=== PATIENT | male | born 1955 | race Caucasian/White ===

== ENCOUNTER 2016-09-19 18:45 | Emergency (ER) | payer OTHER ==
[~2016-09-19 18:45] MED LIST: GADOBUTROL 10 ML VIAL IVP ONE
--- NOTE | 2016-09-19 18:50 | MR ---
MRI of the Brain (Without and With Contrast) 1722 hours Clinical Indication: Severe headache. R51. Technique: T1-weighted images were acquired axially and sagittally from the foramen magnum to the ve rtex. Axial fast inversion recovery, fast T2-weighted, and diffusion-weighted axial images were obta ined without contrast. Postcontrast axial and coronal images with the uneventful intravenous administ ration of 10 mL Gadavist contrast. Findings: The ventricles, cisterns, and sulci are normal without atrophy, hydrocephalus, midline mason ft, herniation, or epidural/subdural hematomas. No intracranial hemorrhage or masses. Diffusion-weigh tristan images demonstrate no acute infarct. Cerebellar tonsils are in normal position. Partially empty s meli turcica. No flow noted in the left internal carotid artery at the skull base consistent with thr ombosis. The right internal carotid artery and basilar artery appear patent. Superior sagittal sinus appears patent. Postcontrast images demonstrate no enhancing lesions or abnormal leptomeningeal enhan cement. 2.2 cm mucous retention cyst in the left maxillary sinus. No evidence of leptomeningitis or e nhancing masses. Impression: 1. 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 2. Left maxillary sinus mucous retention cyst. 3. Partially empty sella turcica. 4. No acute infarct, acute hemorrhage, hydrocephalus, or mass effect. 5. No enhancing lesions. Findings and recommendations discussed with Dr. Abby Causey, at 1825 hours today. The patient has been taken to the emergency department for further evaluation. Final report concurs with initial preliminary interpretation. Findings and recommendations discussed with Emergency Department physician, Dr. Amber Velazquez, at 1845 hours today. Final report concurs with initial preliminary interpretation. Cosign: Dr. Parish Winslow.
[2016-09-19 18:55] VITALS: TEMP 97.3
--- NOTE | 2016-09-19 18:57 | EDPHY ---
H & P Stated Complaint: ABNORMAL MRI Time Seen by Provider: 09/19/16 18:56 HPI/ROS: CHIEF COMPLAINT: Left carotid occlusion, headache. HISTORY OF PRESENT ILLNESS: The patient is a 61-year-old male presenting from his primary care provider for a carotid occlusion seen on MRA/MRI. He visited PCP Dr. Causey earlier today for 3 weeks of headaches. These are worse in the morning and he has been treating them with an unknown amount of Tylenol every 4 hours to little effect. He denies associated nausea, vomiting, numbness, paresthesia, difficulty speaking, chest pain, or shortness of breath. He had an MRI taken that showed an occlusion of the left carotid at the base of his neck and he was immediately sent here. No fever, chills, palpitations, diarrhea, urinary complaints, lightheadedness. No stroke like symptoms. REVIEW OF SYSTEMS: Aside from elements discussed in the HPI, a comprehensive 10-point review of systems was reviewed and is negative. PAST MEDICAL HISTORY: Diastolic hypertension with no heart failure, GERD, gastric bypass. SOCIAL HISTORY: Nonsmoker, occasional alcohol use. VITAL SIGNS: Reviewed by me GENERAL: Obese. Well-developed, well-nourished, resting comfortably in no respiratory distress. HEENT: Atraumatic. Eyes: No icterus, no injection. PERRL, EOMI. Mouth: moist mucous membranes. No erythema or lesions. Neck: supple with no adenopathy. Unable to auscultate carotids bilaterally. LUNGS: Clear to auscultation bilaterally, no wheezes, rhonchi or rales. CARDIAC: Distant heart sounds. Regular rate and rhythm, no rubs, murmurs or gallops. ABDOMEN: Soft, nontender, nondistended, bowel sounds normal. BACK: No CVA tenderness. EXTREMITIES: No trauma. No edema. Range of motion is normal throughout. NEURO: Alert and oriented, CN 2-12 intact, fluent speech, motor 5/5 throughout , normal sensation, normal gait. SKIN: Warm and dry, no rash. PSYCHIATRIC: Normal mentation, no agitation. Portions of this note were transcribed by a medical technician. I personally performed a history, physical exam, medical decision making, and confirmed accuracy of information the transcribed note. Source: Patient Exam Limitations: No limitations - Personal History Current Tetanus/Diphtheria Vaccine: Yes - Medical/Surgical History Hx Asthma: No Hx Chronic Respiratory Disease: No Hx Diabetes: No Hx Cardiac Disease: No Hx Renal Disease: No Hx Cirrhosis: No Hx Alcoholism: No Hx HIV/AIDS: No Hx Splenectomy or Spleen Trauma: No Other PMH: DENIES - Social History Smoking Status: Never smoked Constitutional: Initial Vital Signs Temperature (C) 36.3 C 09/19/16 18:51 Heart Rate 59 L 09/19/16 18:51 Respiratory Rate 18 09/19/16 18:51 Blood Pressure 123/79 H 09/19/16 18:51 O2 Sat (%) 97 09/19/16 18:51 O2 Delivery Mode Room Air O2 (L/minute) 3 Allergies/Adverse Reactions: nitroglycerin [Nitroglycerin] Allergy (Severe, Verified 09/19/16 18:49) [place] iodine [Iodine] Allergy (Unknown, Verified 09/19/16 18:49) Sulfa (Sulfonamide Antibiotics) Allergy (Unknown, Verified 09/19/16 18:49) Home Medications: Medication Instructions Recorded Furosemide [Lasix 20 MG (RX)] 20 mg PO 11/22/11 Levocetirizine Dihydrochloride 5 mg PO 11/22/11 Flomax 09/19/16 Metoprolol Succinate 09/19/16 Omeprazole 09/19/16 Medical Decision Making - Diagnostics Imaging: Study: MRA/MRI of the: Brain Indication: Headache Results: 1. 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 2. Left maxillary sinus mucous retention cyst. 3. Partially empty sella turcica. 4. No acute infarct, acute hemorrhage, hydrocephalus, or mass effect. 5. No enhancing lesions. 6. No definite cerebral aneurysm. The study was read by the radiologist, Dr. Wood. I viewed the images myself on the PACS system. Study: CTA of the brain/neck. Results: 1. Occluded left internal carotid artery, with probable subacute dissection. 2. Mild atherosclerotic calcification right carotid bulb, with mild, less than 30% diameter, stenosis. 3. Patent vertebrobasilar system. The study was read by the radiologist, Dr. Wood. I viewed the images myself on the PACS system. ED Course/Re-evaluation: I reviewed the patient's MRI studies from earlier today (see imaging studies for more information). An IV was established and labs ordered. 1L IV saline, 50mg IV Benadryl, 125mg IV Solu-Medrol administered. (questionable allergy to iodine). Head/neck CTs with contrast ordered. 2131: Consulted with Dr. Merchant, neurologist at [facility]. No indication for acute TPA or IR intervention. No ICU beds available at [facility]. Feel patient needs higher level of care at [facility] for further evaluation of this presumed subacute dissection, initiation of treatment and further workup. Plus will be able to access urgent IR treatment if needed as well as onsite neurology evaluation. Patient in agreement. Transfered to [facility]. Differential Diagnosis: After history was obtained, and the physical exam performed, a differential for headache was considered including, but not limited to, subarachnoid hemorrhage, migraine headache, tension headache, CVA, thrombo-occlusive disease, dissection , and infectious causes such as meningitis, sinusitis, encephalitis. Consult/Admit Bed Type: Dr Merchant, [facility] - Data Points Laboratory Results: Laboratory Results 09/19/16 19:40 09/19/16 19:40 Medications Given: Discontinued Medications Diphenhydramine HCl (Benadryl Injection) 50 mg IVP EDNOW ONE Stop: 09/19/16 19:35 Last Admin: 09/19/16 19:46 Dose: 50 mg Hydromorphone HCl (Dilaudid) 0.5 mg IVP EDNOW ONE Stop: 09/19/16 21:19 Last Admin: 09/19/16 21:20 Dose: 0.5 mg Sodium Chloride (Ns) 1,000 mls @ 500 mls/hr IV EDNOW ONE Stop: 09/19/16 21:32 Last Admin: 09/19/16 19:45 Dose: 1,000 mls Methylprednisolone Sodium Succinate (Solu-Medrol) 125 mg IVP EDNOW ONE Stop: 09/19/16 19:35 Last Admin: 09/19/16 19:46 Dose: 125 mg Departure - Departure Disposition: Acute Care Hospital Not [facility] Clinical Impression: Carotid occlusion, left, Headache, Carotid artery dissection Condition: Fair Referrals: Abby Causey MD [Primary Care Provider] - As per Instructions Report Scribed for: Amber Velazquez Report Scribed by: Michael Casper Date of Report: 09/19/16 Time of Report: 18:56
--- NOTE | 2016-09-19 18:59 | MR ---
MR Arteriogram of the [place] Clinical Indications: Severe headache. R51, R29.818. Neurological changes strongly suggesting intr acerebral aneurysm. Technique: A hfcb-wj-cdeoah gradient echo technique was used for thin axial images at the skull base for evaluation of major vessels of the [place]. Three-dimensional technique was used with a 30-degree gradient echo flip angle and a traveling saturation band. Images were manipulated by the radiologist at the computer workstation. Findings: Major vessels of the [place] are adequately displayed, demonstrating no flow in t he left internal carotid artery at the skull base. Normal flow in the right internal carotid artery, vertebrobasilar system, and [place] vessels. No definite aneurysm. No vascular malformati ons. Impressions 1. Thrombosis of the left internal carotid artery at the skull base. 2. No definite cerebral aneurysm. Findings and recommendations discussed with Dr. Abby Causey, Emergency Department physician, and Lisa Velazquez. The patient has been taken to the Emergency Department. Final report concurs with initial preliminary interpretation.
[2016-09-19] MEDS ORDERED: NS 1,000 ML IV ONE (19:33)
[2016-09-19] MEDS ORDERED: methylPREDNISolone SOD SUCC 125 MG/2 ML VIAL IVP ONE (19:34)
[2016-09-19 19:45] LABS: % IMMATURE GRANULYOCYTES 0.2 % (0.0-1.1); ABSOLUTE IMMATURE GRANULOCYTES 0.02 10^3/uL (0.00-0.10); ADD DIFF? NO; ADD MORPH? NO; ADD SCAN? NO; ATYPICAL LYMPHOCYTE FLAG 0 (0-99); FRAGMENT RBC FLAG 0 (0-99); HEMATOCRIT 46.1 % (40.0-51.0); HEMOGLOBIN 15.8 g/dL (13.7-17.5); LEFT SHIFT FLG 0 (0-99); LIPEMIA HEMOLYSIS FLAG 90 (0-99); MEAN CELL HEMOGLOBIN 30.3 pg (27.9-34.1); MEAN CELL HEMOGLOBIN CONCENTR. 34.3 g/dL (32.4-36.7); MEAN CELL VOLUME 88.5 fL (81.5-99.8); MEAN PLATELET VOLUME 10.7 fL (8.7-11.7); PLATELET CLUMPS FLAG 0 (0-99); PLATELET COUNT 274 10^3/uL (150-400); RED BLOOD CELL COUNT 5.21 10^6/uL (4.40-6.38); RED CELL DISTRIBUTION WIDTH 12.8 % (11.5-15.2)
[2016-09-19 20:00] LABS: ANION GAP 12 mEq/L (8-16); CALCIUM 9.5 mg/dL (8.5-10.4); CARBON DIOXIDE 25 mEq/l (22-31); CHLORIDE 104 mEq/L (97-110); CREATININE 1.1 mg/dL (0.7-1.3); GLOMERULAR FILTRATION RATE > 60; GLUCOSE 97 mg/dL (70-100); POTASSIUM 4.2 mEq/L (3.5-5.2); SODIUM 141 mEq/L (134-144)
[2016-09-19] MEDS ORDERED: IOPAMIDOL (ISOVUE 370) 75 ML BTL IV ONE (20:05)
[2016-09-19 20:26] LABS: ALANINE AMINOTRANSFERASE 33 IU/L (21-72); ALBUMIN 4.3 g/dL (3.5-5.0); ALKALINE PHOSPHATASE 117 IU/L (38-126); ASPARTATE AMINOTRANSFERASE 30 IU/L (17-59); BILIRUBIN-CONJUGATED 0.3 mg/dL (0.0-0.5); BILIRUBIN-UNCONJUGATED 0.7 mg/dL (0.0-1.1); TOTAL PROTEIN 7.7 g/dL (6.3-8.2)
[2016-09-19] MEDS ORDERED: HYDROmorphONE/DILAUDID 1 MG/ML SYR IVP ONE (21:18)
--- NOTE | 2016-09-19 22:22 | CT ---
CT Angiogram Neck, With Contrast Enhancement and Multiplanar Reconstructions 2031 hours History: Occluded left internal carotid artery, left-sided neck pain for three weeks. Technique: 1.25-mm axial multidetector helical CT imaging was performed through the brain and neck w hile 90 mL Isovue-370 were injected intravenously, without complication. The images were then transf erred to an independent workstation where multiplanar and three-dimensional reconstructions were perf ormed by the interpreting physician and reviewed at multiple windows. Dose reduction techniques were utilized. CTA Findings: Patent bilateral common carotid arteries. Patent bilateral vertebral arteries and mary lou tebrobasilar system. Mild atherosclerotic disease right carotid bulb, with less than 30% diameter st enosis of the proximal right internal carotid artery. Complete occlusion of the left internal caroti d artery approximately 1 cm distal to the bifurcation, with only minimal calcified plaque, likely rep resenting subacute dissection. Impressions 1. Occluded left internal carotid artery, with probable subacute dissection. 2. Mild atherosclerotic calcification right carotid bulb, with mild, less than 30% diameter, stenosi s. 3. Patent vertebrobasilar system. Measurement of carotid stenosis is based on the residual internal carotid diameter with [place] Symptomatic Carotid Endarterectomy Trial (NASCET) based stenosis levels. CT Angiogram of the Brain Clinical Indications: Occluded left internal carotid artery, left-sided neck pain. Technique: CT angiogram of the brain and neck was performed, with the uneventful intravenous adminis tration of 90 mL Isovue-370 contrast. Multiplanar reconstructions including 3D reconstructions perfo rmed and evaluated on [employer] workstation in order to better evaluate the [place] vessels. Im ages were manipulated by the radiologist at the computer workstation. Dose reduction techniques were utilized. Findings: Major vessels of the [place] are adequately displayed, demonstrating complete occ lusion of the left internal carotid artery, with reflux from the [place]. The right interna l carotid artery is patent. Bilateral anterior, middle, and posterior cerebral arteries appear paten t. Vertebrobasilar junction appears patent. Superior sagittal sinus, transverse sinuses, and major veins demonstrate no evidence of intraluminal thrombi. Impression: Occluded left internal carotid artery. Findings and recommendations discussed with Emergency Department physician, Dr. Amber Velazquez, at 0 hours. A test result has been communicated to a licensed care provider and documented in [employer], 9:49:39 PM , 09/19/2016, [employer] Message ID [id number].
--- NOTE | 2016-09-19 22:22 | CT ---
CT Angiogram Neck, With Contrast Enhancement and Multiplanar Reconstructions 2031 hours History: Occluded left internal carotid artery, left-sided neck pain for three weeks. Technique: 1.25-mm axial multidetector helical CT imaging was performed through the brain and neck w hile 90 mL Isovue-370 were injected intravenously, without complication. The images were then transf erred to an independent workstation where multiplanar and three-dimensional reconstructions were perf ormed by the interpreting physician and reviewed at multiple windows. Dose reduction techniques were utilized. CTA Findings: Patent bilateral common carotid arteries. Patent bilateral vertebral arteries and mary lou tebrobasilar system. Mild atherosclerotic disease right carotid bulb, with less than 30% diameter st enosis of the proximal right internal carotid artery. Complete occlusion of the left internal caroti d artery approximately 1 cm distal to the bifurcation, with only minimal calcified plaque, likely rep resenting subacute dissection. Impressions 1. Occluded left internal carotid artery, with probable subacute dissection. 2. Mild atherosclerotic calcification right carotid bulb, with mild, less than 30% diameter, stenosi s. 3. Patent vertebrobasilar system. Measurement of carotid stenosis is based on the residual internal carotid diameter with [place] Symptomatic Carotid Endarterectomy Trial (NASCET) based stenosis levels. CT Angiogram of the Brain Clinical Indications: Occluded left internal carotid artery, left-sided neck pain. Technique: CT angiogram of the brain and neck was performed, with the uneventful intravenous adminis tration of 90 mL Isovue-370 contrast. Multiplanar reconstructions including 3D reconstructions perfo rmed and evaluated on [employer] workstation in order to better evaluate the [place] vessels. Im ages were manipulated by the radiologist at the computer workstation. Dose reduction techniques were utilized. Findings: Major vessels of the [place] are adequately displayed, demonstrating complete occ lusion of the left internal carotid artery, with reflux from the [place]. The right interna l carotid artery is patent. Bilateral anterior, middle, and posterior cerebral arteries appear paten t. Vertebrobasilar junction appears patent. Superior sagittal sinus, transverse sinuses, and major veins demonstrate no evidence of intraluminal thrombi. Impression: Occluded left internal carotid artery. Findings and recommendations discussed with Emergency Department physician, Dr. Amber Velazquez, at 0 hours. A test result has been communicated to a licensed care provider and documented in [employer], 9:49:39 PM , 09/19/2016, [employer] Message ID [id number].
[2016-09-19 22:27] VITALS: BP 131/80; PULSE 58; RESP 20; O2SAT 94
== END 2016-09-19 22:41 | disposition short-term general hospital (02) ==
DX: R51 Headache (principal); I65.22 Occlusion and stenosis of left carotid artery; I77.71 Dissection of carotid artery; I10 Essential (primary) hypertension
CPT/HCPCS: 96374; A9585; G0480; J1170

== ENCOUNTER → 2018-03-24 | Outpatient (CLI) | payer OTHER | LOC: FIMAGING 10:34 | PROVIDERS: ATTEND Orthopaedic Surgery | DX: Z01.818 Encounter for other preprocedural examination (principal); M16.11 Unilateral primary osteoarthritis, right hip ==

== ENCOUNTER 2018-05-04 09:35 | Inpatient (IN) | payer OTHER ==
--- NOTE | 2018-05-04 06:46 | PDHPUP ---
History & Physical Update H&P update statement: This history and physical update is based on an assessment of the patient which was completed after admission or registration (within 24 hours), but prior to the surgery/procedure. H&P update: no change in patient's condition since H&P completed
--- NOTE | 2018-05-04 06:46 | PDIAF ---
- Diagnosis Diagnosis: right hip djd Code Status: Full Code - Medication Management Discharge Medications: Medications to Continue on Transfer Metoprolol Succinate Xr [Toprol Xl 25 mg (*)] 12.5 mg PO DAILY 09/19/16 [Last Taken Unknown] Tamsulosin HCl [Flomax 0.4 MG (*)] 0.4 mg PO DAILY 09/19/16 [Last Taken Unknown] Acetaminophen [Tylenol 325mg (*)] 325 mg PO DAILY PRN 04/16/18 [Last Taken Unknown] Atorvastatin Calcium [Lipitor 40 mg (*)] 40 mg PO HS 04/16/18 [Last Taken Unknown] Azelastine/Fluticasone [Dymista Nasal [place]] 1 spray EACHNARE BID 04/16/18 [ Last Taken Unknown] Cholecalciferol Vit D3 [Vitamin D3 (*)] 5,000 units PO DAILY 04/16/18 [Last Taken Unknown] Clopidogrel Bisulfate [Plavix (*)] 75 mg PO HS 04/16/18 [Last Taken Unknown] Furosemide [Lasix 40 MG (*)] 40 mg PO DAILY 04/16/18 [Last Taken Unknown] Herbals/Supplements -Info Only 1 ea PO DAILY 04/16/18 [Last Taken Unknown] Levocetirizine Dihydrochloride [Xyzal] 5 mg PO DAILY 04/16/18 [Last Taken Unknown] Montelukast Sodium [Singulair 10 mg (*)] 10 mg PO HS 04/16/18 [Last Taken Unknown] Pantoprazole Sodium [Protonix] 20 mg PO HS 04/16/18 [Last Taken Unknown] Discharge Medications: Refer to the Discharge Home Medication list for PRN reason. - Orders Services needed: Physical Therapy Diet Recommendation: no restrictions on diet Diet Texture: Regular Texture Diet Additional Instructions: TOTAL JOINT ARTHROPLASTY DISCHARGE INSTRUCTIONS 1. Your surgeon follows the [facility] protocol for reducing your risk of DVT (blood clots) following surgery. Medication will be ordered to prevent blood clots. A sudden increase in calf pain and/or swelling could indicate a blood clot in your leg. If this occurs, please call your surgeon or his/her assistant professor of communication. An ultrasound of the leg may be necessary to diagnose a blood clot. If you have conditions that make you a higher risk for blood clots, your surgeon may use more aggressive ways to prevent them. Notify your surgeon if you think you are a high risk for blood clots. 2. Wear your white surgical stockings (SIMONA hose) for 2 weeks. This decreases your swelling and may help prevent blood clots. It is ok to remove SIMONA hose at night time to give your legs a break. 3. Swelling and bruising in the surgical leg is common. If you feel that it is excessive, please notify your surgeon. 4. Elevate your surgical leg with the ankle above the hip several times every day. Please keep the leg straight when you elevate by putting pillows under your foot. Do not put pillows under your knee. This will make being able to fully straighten more difficult. This is uncomfortable, but try to do it as much as possible. 5. For total knee replacements use compressive wrap on your knee for 3-5 days after surgery, then you can discontinue it. 6. Use a walker or crutches for 1-2 weeks. Progress your weight-bearing as tolerated. You may start to use a cane when you feel stable and safe. 7. You will receive physical therapy instructions in the hospital. Continue those exercises at home. There are additional exercises in the total joint booklet you were given before surgery. Outpatient physical therapy will begin 7- 10 days after surgery. Please schedule this in advance. 8. Use ice on your knee at least 3-5 times every day for 30 minutes. This helps reduce pain and swelling. Also use it at night before falling asleep. 9. Leave your surgical dressing in place for 2 weeks. Your dressing is water resistant, but not waterproof. Cover it with Saran Wrap or Lvxiv-v-Baee before showering. You may shower as soon as you feel safe entering a shower. If you notice bleeding from your incision 2 or 3 days after surgery, please notify your surgeon. 10. Due to narcotics, decreased activity and altered diet, most patients experience constipation after surgery. Use agwk-bve-slcplqg stool softeners while you are on narcotics. 11. You may drive a car when you are comfortable bearing weight, have good muscular control of your leg and are off narcotics. This usually occurs 2-4 weeks after surgery, depending on which leg was operated on. 12. If there are questions not addressed here, please refer the [facility] book given for more information. If you still have questions, please contact your surgeon s office. 13. If you have a life-threatening emergency, please call 911 and go to the emergency room immediately. For non-life threatening emergencies, please call your physicians office for advice before going to the emergency room. - Follow Up Care Current Providers and Referrals: Dagoberto Leos MD [Medical Doctor] - Abby Causey MD [Primary Care Provider] -
[~2018-05-04 09:35] MED LIST changes: -GADOBUTROL 10 ML VIAL IVP ONE; +ROPIVACAINE 0.2% 80 MG, EPINEPHrine 0.2 MG, morphINE 10 MG in SYRINGE 0 ML IU ONE; +TRANEXAMIC ACID 2,000 MG in NS 100 ML IV ONE; +ceFAZolin 1 GM/5 ML SYR ONE
[2018-05-04] MEDS ORDERED: FAMOTIDINE 20 MG TAB PO ONE (09:54)
[2018-05-04] MEDS ORDERED: LR 1,000 ML IV ONE (09:54)
[2018-05-04] MEDS ORDERED: ACETAMINOPHEN 325 MG TAB PO ONE (09:54)
[2018-05-04] MEDS ORDERED: LIDOCAINE 1% 2 ML INJ ID PRN (09:54)
[2018-05-04] MEDS ORDERED: ceFAZolin 2 GM/DEXTROSE 100 ML IV ONE (09:54)
--- NOTE | 2018-05-04 11:06 | PDANEPAE ---
ANE History of Present Illness R [place] ANE Past Medical History - Cardiovascular History Hx Hypertension: No Hx Arrhythmias: No Hx Chest Pain: No Hx Coronary Artery / Peripheral Vascular Disease: Yes Hx CHF / Valvular Disease: No Hx Palpitations: No Cardiovascular History Comment: pericardial cyst 2007. bp runs low, HPL. disected carotid artery in neck. [place] [facility] will obtain records. bilateral lower ext edema - Pulmonary History Hx COPD: No Hx Asthma/Reactive Airway Disease: No Hx Recent Upper Respiratory Infection: No Hx Oxygen in Use at Home: No Hx Sleep Apnea: Yes Sleep Apnea Screening Result - Last Documented: Positive Pulmonary History Comment: hx of ghazala- doesn't use any devices, unable to tolerate CPAP, states he only sleeps on his side. O2 Sat on RA today: 90%. seasonal allergies - Neurologic History Hx Cerebrovascular Accident: Yes Hx Seizures: No Hx Dementia: No Neurologic History Comment: stroke 09/2016, no residual deficits - Endocrine History Hx Diabetes: No Hypothyroid: No Hyperthyroid: No Obesity: severe - Renal History Hx Renal Disorders: Yes Renal History Comment: BPH, on meds - Liver History Hx Hepatic Disorders: No - Neurological & Psychiatric Hx Hx Neurological and Psychiatric Disorders: Yes Neurological / Psychiatric History Comment: skin ca - Cancer History Hx Cancer: No - Congenital Disorder History Hx Congenital Disorders: No - GI History GERD: mild Hx Gastrointestinal Disorders: Yes Gastrointestinal History Comment: hx of gastric bypass 2009 - Other Health History Other Health History: wears reading glasses - Chronic Pain History Chronic Pain: Yes (right hip) - Surgical History Prior Surgeries: gastric bypass 2009. meniscus repair 30 yrs ago. tonsillectomy 55yrs ago ANE Review of Systems Review of Systems: - Exercise capacity METS (RN): 4 METS ANE Patient History - Allergies Allergies/Adverse Reactions: iodine [Iodine] Allergy (Verified 04/21/18 11:47) rash and fever nitroglycerin [Nitroglycerin] Allergy (Verified 04/21/18 11:47) lowers BP NSAIDS (Non-Steroidal Anti-Inflamma Allergy (Verified 04/21/18 11:47) hx of gastric bypass surgery unable to take Sulfa (Sulfonamide Antibiotics) Allergy (Verified 04/21/18 11:47) Rash - Home Medications Home Medications: Metoprolol Succinate Xr [Toprol Xl 25 mg (*)] 12.5 mg PO DAILY 09/19/16 [Last Taken 05/02/18] Tamsulosin HCl [Flomax 0.4 MG (*)] 0.4 mg PO DAILY 09/19/16 [Last Taken 07:00] Acetaminophen [Tylenol 325mg (*)] 325 mg PO DAILY PRN 04/16/18 [Last Taken 05/03] Atorvastatin Calcium [Lipitor 40 mg (*)] 40 mg PO HS 04/16/18 [Last Taken ] Azelastine/Fluticasone [Dymista Nasal [place]] 1 spray EACHNARE BID 04/16/18 [ Last Taken 05/02/18] Cholecalciferol Vit D3 [Vitamin D3 (*)] 5,000 units PO DAILY 04/16/18 [Last Taken 04/27/18] Clopidogrel Bisulfate [Plavix (*)] 75 mg PO HS 04/16/18 [Last Taken 04/29/18] Furosemide [Lasix 40 MG (*)] 40 mg PO DAILY 04/16/18 [Last Taken 05/02/18] Herbals/Supplements -Info Only 1 ea PO DAILY 04/16/18 [Last Taken 04/27/18] Levocetirizine Dihydrochloride [Xyzal] 5 mg PO DAILY 04/16/18 [Last Taken ] Montelukast Sodium [Singulair 10 mg (*)] 10 mg PO HS 04/16/18 [Last Taken ] Pantoprazole Sodium [Protonix] 20 mg PO HS 04/16/18 [Last Taken 05/02/18] - NPO status NPO Since - Liquids (Date): 05/03/18 NPO Since - Liquids (Time): 03:00 NPO Since - Solids (Date): 05/03/18 NPO Since - Solids (Time): 22:00 - Anes Hx Anes Hx: no prior problems - Smoking Hx Smoking Status: Never smoked Marijuana use: No - Alcohol Use Alcohol Use: None - Family Anes Hx Family Anes Hx: none Family Hx Anesthesia Complications: none ANE Labs/Vital Signs - Vital Signs Blood Pressure: 119/78 Heart Rate: 73 Respiratory Rate: 12 O2 Sat (%): 90 Height: 176.53 cm Weight: 127.006 kg ANE Physical Exam - Airway Neck exam: FROM Mallampati Score: Class 2 - Pulmonary Pulmonary: clear to auscultation - Cardiovascular Cardiovascular: regular rate and rhythym - ASA Status ASA Status: III ANE Anesthesia Plan Anesthesia Plan: general endotracheal anesthesia, spinal (Discussed possible difficulty with SAB, risks/benefits)
[2018-05-04] MEDS ORDERED: MIDAZOLAM 2 MG/2 ML VIAL IVP ONE (11:13)
[2018-05-04] MEDS ORDERED: DEXAMETHASONE 4 MG/ML VIAL ONE (11:24)
[2018-05-04] MEDS ORDERED: RANITIDINE 50 MG/2 ML VIAL ONE (11:24)
[2018-05-04] MEDS ORDERED: PROPOFOL 200 MG/20 ML VIAL ONE (11:24)
[2018-05-04] MEDS ORDERED: ROCURONIUM 50 MG/5 ML VIAL ONE ×2 (11:24)
[2018-05-04] MEDS ORDERED: BUPIVACAINE/DEXTROSE 7.5MG/ML 2 ML SPINAL AMP SP ONE (11:28)
[2018-05-04] MEDS ORDERED: PHENYLEPHRINE 10 MG/ML SDV ONE (12:00)
[2018-05-04] MEDS ORDERED: ePHEDrine SULFATE 25 MG/5 ML SYR ONE (12:12)
[2018-05-04] MEDS ORDERED: ONDANSETRON 4 MG/2 ML VIAL ONE ×2 (13:10→14:45)
[2018-05-04] MEDS ORDERED: GLYCOPYRROLATE 0.2 MG/1 ML VIAL ONE ×2 (13:40)
[2018-05-04] MEDS ORDERED: NEOSTIGMINE METHYLSULFATE 5 MG/5 ML SYR ONE (13:40)
[2018-05-04] MEDS ORDERED: NALOXONE HCL 0.4 MG/ML INJ IVP PRN (13:51)
[2018-05-04] MEDS ORDERED: HYDROmorphONE/DILAUDID 1 MG/ML INJ IVP PRN (13:51)
[2018-05-04] MEDS ORDERED: TEMAZEPAM 15 MG CAP PO PRN (13:52)
[2018-05-04] MEDS ORDERED: MAGNESIUM HYDROXIDE 30 ML UDCUP PO PRN (13:52)
[2018-05-04] MEDS ORDERED: PROMETHAZINE HCL 25 MG SUPPR PR PRN (13:52)
[2018-05-04] MEDS ORDERED: LACTULOSE 20 GM/30 ML UDCUP PO PRN (13:52)
[2018-05-04] MEDS ORDERED: BISACODYL 10 MG SUPP PR PRN (13:52)
[2018-05-04] MEDS ORDERED: POLYETHYLENE GLYCOL 3350 17 GM PKT PO PRN (13:52)
[2018-05-04] MEDS ORDERED: ONDANSETRON DISINTEGRATING 4 MG TAB PO PRN (13:52)
[2018-05-04] MEDS ORDERED: PROMETHAZINE HCL 25 MG/ML INJ IVP PRN (13:52)
[2018-05-04] MEDS ORDERED: DIPHENOXYLATE/ATROPINE LOMOTIL 1 TAB PO PRN (13:52)
[2018-05-04] MEDS ORDERED: METOCLOPRAMIDE 10 MG/2 ML VIAL IVP PRN (13:52)
[2018-05-04] MEDS ORDERED: diphenhydrAMINE 25 MG CAP PO PRN (13:52)
[2018-05-04] MEDS ORDERED: ONDANSETRON 4 MG/2 ML VIAL IVP PRN (13:52)
--- NOTE | 2018-05-04 13:52 | POSTOPPROG ---
Post Op Note Date of Operation: 05/04/18 Surgeon: Dagoberto Leos Judicial Law Clerk: lilly Anesthesiologist: sharlene Anesthesia: GET(General Endotracheal), Spinal Pre-op Diagnosis: right hip djd Post-op Diagnosis: same Indication: same Procedure: right vera Inf/Abcess present in the surg proc area at time of surgery?: No Depth: Deep Incisional (Fascial) EBL: 100-500 Drains: Hemovac
[2018-05-04] MEDS ORDERED: LR 1,000 ML IV SCH (14:00)
[2018-05-04] MEDS ORDERED: fentaNYL 100 MCG/2 ML INJ ONE (14:22)
[2018-05-04] MEDS: fentaNYL 100 MCG/2 ML INJ IVP PRN ×3 (14:26→15:00)
--- NOTE | 2018-05-04 15:07 | PDMN ---
Medical Necessity Medical necessity: [facility] S560 hip arthroplasty INPT only R [place]
--- NOTE | 2018-05-04 15:51 | POSTANESTH ---
Post Anesthetic Evaluation Cardiovascular Status: Similar to Pre-Op Cond Respiratory Status: Similar to Pre-op Cond. Level of Consciousness/Mental Status: Can Participate in Eval Pain Control: Adequate, Prn Tx Ordered Nausea/Vomiting Control: Adequate, Prn Tx Ordered Complications Possibly Related to Anesthesia: None Noted
[2018-05-04] MEDS: oxyCODONE IR 5 MG TAB PO PRN ×2 (16:50→20:40)
[2018-05-04] MEDS: ACETAMINOPHEN 325 MG TAB PO SCH (17:56)
[2018-05-04] MEDS: CYCLOBENZAPRINE 10 MG TAB PO PRN (17:59)
--- NOTE | 2018-05-04 19:07 | GCON ---
[f rep st] CONSULTATION INTERNAL MEDICINE CONSULTATION DATE OF CONSULTATION: 05/04/2018 REFERRING PHYSICIAN: Dagoberto Leos MD REASON FOR CONSULTATION: Medical opinion regarding perioperative management of anticoagulation. HISTORY: The patient is a 66-year-old male, who has undergone an elective right total hip arthroplas ty with Dr. Leos. He has a history of carotid artery dissection and was on anticoagulation with Cou madin for a prolonged period of time and subsequently has been changed onto Plavix about 1 year ago. In his preoperative evaluation care conference between Dr. Leos, Dr. Edward, and his gastric bypass [facility] physician resulted in a plan of holding Plavix 5 days prior to surgery. He started on Lovenox at that time, and has been using it as a bridge at [address] Leos would like him to hold Plavix for [address] Edward, the radiologist who has been managing his carotid artery dissection, recommended resuming Lovenox immediately post surgery. Dr. Leos's preference is wait u ntil tomorrow morning. The patient and his were anxious to get the 1st dose of Lovenox now. They were otherwise without any complaints. He was having a little bit of issues with postoperative pain control, but otherwise was doing well. PAST MEDICAL HISTORY: 1. Carotid artery dissection. 2. Fibromuscular dysplasia. 3. Hyperlipidemia. 4. BPH. 5. Morbid obesity. BMI 40. 6. Gastric bypass surgery. MEDICATIONS: Please see computerized record for full detailed list. ALLERGIES: Nitro, sulfa, and iodine. SOCIAL HISTORY: No smoking. No alcohol. He lives with his . REVIEW OF SYSTEMS: Complete review of systems 10 review of systems negative regarding constitutional , HEENT, GI, pulmonary, cardiovascular, , hematologic, musculoskeletal, endocrine, psych, except fo r positives and negatives as in HPI. FAMILY HISTORY: Reviewed and noncontributory to presenting complaint. PHYSICAL EXAMINATION: GENERAL: Well-developed, well-nourished male in no acute distress. VITAL SIGNS : Temperature 36.3, pulse 64, blood pressure 102/72, saturating 95% on 4 L. EYE: Normal conjunctivae. Pupils react to light. ENT: Normal ears and nose. Hearing intact. Normal teeth. Oropharynx moist. NE CK: Trachea midline. No thyromegaly. CHEST: Normal respiratory effort. LUNGS: Clear to auscultation b ilaterally. CARDIOVASCULAR: Regular rhythm. No murmur. No lower extremity edema. ABDOMEN: Soft, nonte nder. No hepatosplenomegaly. SKIN: Warm, dry, intact. No rash. MUSCULOSKELETAL: No cyanosis or clubbi ng. Strength 5/5 upper and lower extremities. NEURO: Cranial nerves intact. Normal sensation to light touch. PSYCH: Alert and oriented x3. Normal affect. Normal judgment and insight. Normal memory. LABS: Pending. CBC and Chem 7 ordered for tomorrow morning. This case was discussed with Dr. Leos regarding preference for waiting till tomorrow morning for subcu Lovenox. Old records reviewed. I rev iewed records from Dr. Edward who appears to be a radiologist with [facility] at [facility] regarding anticoagulation plan. Pelvic x-rays are consistent with normal postoperativ e right hip replacement. ASSESSMENT/PLAN: 1. Status post total hip arthroplasty per Dr. Leos. Physical therapy, occupational therapy startin g tomorrow morning. 2. Carotid artery dissection. He has been off Plavix 1 week for surgery and now on a Lovenox bridge at 30 mg subcutaneous b.i.d. which will be resumed. The patient and Dr. Edward would like the subcutaneou s Lovenox initiated immediately post surgery. Dr. Leos would like it to start tomorrow morning 1st dose. I think I will split the difference and order it for late tonight dosing to get him on a usual b.i.d. schedule. I think the risk of stroke and problems with the cerebral perfusion to me are more c oncerning than the risk of bleeding postoperatively with the hip as per record review, it appears he continues to have very low blood flow through this area of dissection. Lovenox will be continued at t his dosage until Plavix can be restarted in 1 week. 3. Morbid obesity. Body mass index is 40. This should be watched closely with narcotic pain control in the postoperative state as he does run the risk of respiratory issues. 4. Status post gastric bypass surgery. The patient and his refused any aspirin because of this history. Thank you very much for this consultation. Internal Medicine will continue to follow throughout this hospitalization. /[id number]/MODL
[2018-05-04] MEDS ORDERED: TRANEXAMIC ACID 650 MG TAB PO SCH (20:00)
[2018-05-04] MEDS: PANTOPRAZOLE SODIUM 40 MG TAB PO SCH (20:28)
[2018-05-04] MEDS: ATORVASTATIN CALCIUM 40 MG TAB PO SCH (20:28)
[2018-05-04] MEDS: ceFAZolin 2 GM/DEXTROSE 100 ML IV SCH (20:30)
[2018-05-04] MEDS: MONTELUKAST SODIUM 10 MG TAB PO SCH (20:31)
[2018-05-04] MEDS: FAMOTIDINE 20 MG TAB PO SCH (20:31)
[2018-05-04] MEDS: SENNOSIDES/DOCUSATE SODIUM TAB PO SCH (20:32)
[2018-05-04] MEDS ORDERED: ENOXAPARIN 30 MG/0.3 ML SYR SC ONE (21:00)
[2018-05-04] MEDS: Azelastine/Fluticasone [Dymista Nasal Spray] EACHNARE SCH (22:46)
[2018-05-04] MEDS: CEPACOL LOZENGE PO PRN (22:47)
[2018-05-05] MEDS: ACETAMINOPHEN 325 MG TAB PO SCH ×5 (00:09→23:19)
[2018-05-05] MEDS: oxyCODONE IR 5 MG TAB PO PRN ×8 (00:10→23:19)
[2018-05-05] MEDS: CEPACOL LOZENGE PO PRN ×3 (00:29→09:12)
[2018-05-05] MEDS: ceFAZolin 2 GM/DEXTROSE 100 ML IV SCH (03:52)
[2018-05-05 05:31] LABS: PLATELET COUNT 215 10^3/uL (150-400)
--- NOTE | 2018-05-05 07:04 | PDIAF ---
- Diagnosis Diagnosis: right hip djd Code Status: Full Code - Medication Management Discharge Medications: Medications to Continue on Transfer Metoprolol Succinate Xr [Toprol Xl 25 mg (*)] 12.5 mg PO DAILY 09/19/16 [Last Taken 05/02/18] Tamsulosin HCl [Flomax 0.4 MG (*)] 0.4 mg PO DAILY 09/19/16 [Last Taken 07:00] Acetaminophen [Tylenol 325mg (*)] 325 mg PO DAILY PRN 04/16/18 [Last Taken 05/03] Atorvastatin Calcium [Lipitor 40 mg (*)] 40 mg PO HS 04/16/18 [Last Taken ] Azelastine/Fluticasone [Dymista Nasal [place]] 1 spray EACHNARE BID 04/16/18 [ Last Taken 05/02/18] Cholecalciferol Vit D3 [Vitamin D3 (*)] 5,000 units PO DAILY 04/16/18 [Last Taken 04/27/18] Furosemide [Lasix 40 MG (*)] 40 mg PO DAILY 04/16/18 [Last Taken 05/02/18] Herbals/Supplements -Info Only 1 ea PO DAILY 04/16/18 [Last Taken 04/27/18] Levocetirizine Dihydrochloride [Xyzal] 5 mg PO DAILY 04/16/18 [Last Taken ] Montelukast Sodium [Singulair 10 mg (*)] 10 mg PO HS 04/16/18 [Last Taken ] Pantoprazole Sodium [Protonix] 20 mg PO HS 04/16/18 [Last Taken 05/02/18] Enoxaparin [Lovenox] 30 mg SC BID #12 syr 05/05/18 [Last Taken Unknown] oxyCODONE IR [Oxycodone Ir (*)] 5 - 10 mg PO Q3HRS PRN #60 tab 05/05/18 [Last Taken Unknown] Discharge Medications: Refer to the Discharge Home Medication list for PRN reason. - Orders Services needed: Physical Therapy Diet Recommendation: no restrictions on diet Diet Texture: Regular Texture Diet Additional Instructions: TOTAL JOINT ARTHROPLASTY DISCHARGE INSTRUCTIONS 1. Your surgeon follows the [facility] protocol for reducing your risk of DVT (blood clots) following surgery. Medication will be ordered to prevent blood clots. A sudden increase in calf pain and/or swelling could indicate a blood clot in your leg. If this occurs, please call your surgeon or his/her distribution center assistant. An ultrasound of the leg may be necessary to diagnose a blood clot. If you have conditions that make you a higher risk for blood clots, your surgeon may use more aggressive ways to prevent them. Notify your surgeon if you think you are a high risk for blood clots. 2. Wear your white surgical stockings (SIMONA hose) for 2 weeks. This decreases your swelling and may help prevent blood clots. It is ok to remove SIMONA hose at night time to give your legs a break. 3. Swelling and bruising in the surgical leg is common. If you feel that it is excessive, please notify your surgeon. 4. Elevate your surgical leg with the ankle above the hip several times every day. Please keep the leg straight when you elevate by putting pillows under your foot. Do not put pillows under your knee. This will make being able to fully straighten more difficult. This is uncomfortable, but try to do it as much as possible. 5. For total knee replacements use compressive wrap on your knee for 3-5 days after surgery, then you can discontinue it. 6. Use a walker or crutches for 1-2 weeks. Progress your weight-bearing as tolerated. You may start to use a cane when you feel stable and safe. 7. You will receive physical therapy instructions in the hospital. Continue those exercises at home. There are additional exercises in the total joint booklet you were given before surgery. Outpatient physical therapy will begin 7- 10 days after surgery. Please schedule this in advance. 8. Use ice on your knee at least 3-5 times every day for 30 minutes. This helps reduce pain and swelling. Also use it at night before falling asleep. 9. Leave your surgical dressing in place for 2 weeks. Your dressing is water resistant, but not waterproof. Cover it with Saran Wrap or [id number] before showering. You may shower as soon as you feel safe entering a shower. If you notice bleeding from your incision 2 or 3 days after surgery, please notify your surgeon. 10. Due to narcotics, decreased activity and altered diet, most patients experience constipation after surgery. Use [id number] stool softeners while you are on narcotics. 11. You may drive a car when you are comfortable bearing weight, have good muscular control of your leg and are off narcotics. This usually occurs 2-4 weeks after surgery, depending on which leg was operated on. 12. If there are questions not addressed here, please refer the [facility] book given for more information. If you still have questions, please contact your surgeon s office. 13. If you have a life-threatening emergency, please call 911 and go to the emergency room immediately. For non-life threatening emergencies, please call your physicians office for advice before going to the emergency room. - Follow Up Care Current Providers and Referrals: Dagoberto Leos MD [Medical Doctor] - Abby Causey MD [Primary Care Provider] -
--- NOTE | 2018-05-05 07:07 | SOAPPROG ---
SOAP Progress Note Assessment/Plan: Assessment: s/p vera Plan: anticoagulation: resume lovenox 30 sq bid for one week then may resume plavix and stop lovenox wbat anterior hip precautions d/c when cleared by pt appreciate hospitalist input seek attn for increasing abd pain, leg pain, swelling, redness or other focal complaint 05/05/18 07:04 Subjective: doing well no cp or sob mod hip pain weak with lifting leg Objective: Vital Signs Temp Pulse Resp BP Pulse Ox 36.9 C 65 15 96/59 L 94 05/05/18 04:00 05/05/18 04:00 05/05/18 04:00 05/05/18 04:00 05/05/18 04:00 Laboratory Results 05/05/18 04:50 05/05/18 04:50 05/04/18 05/05/18 05/06/18 05:59 05:59 05:59 Intake Total 2500 Output Total 950 Balance 1550 dressing intact intact pf, df, ehl toes warm and pink neg homans zari xrays stable concentric reduction, no fx or lucency ICD10 Worksheet Patient Problems: Problems Problem Status Onset Carotid occlusion, left Acute
--- NOTE | 2018-05-05 07:45 | SOAPPROG ---
SOAP Progress Note Assessment/Plan: Assessment: s/p vera Plan: anticoagulation: resume lovenox 30 sq bid for one week then may resume plavix and stop lovenox wbat anterior hip precautions d/c when cleared by pt appreciate hospitalist input seek attn for increasing abd pain, leg pain, swelling, redness or other focal complaint 05/05/18 07:04 Objective: Vital Signs Temp Pulse Resp BP Pulse Ox 36.9 C 65 15 96/59 L 94 05/05/18 04:00 05/05/18 04:00 05/05/18 04:00 05/05/18 04:00 05/05/18 04:00 Laboratory Results 05/05/18 04:50 05/05/18 04:50 05/04/18 05/05/18 05/06/18 05:59 05:59 05:59 Intake Total 2500 Output Total 950 Balance 1550 abdomen examined with am exam updated documentation soft nontender, nondistended no guarding ICD10 Worksheet Patient Problems: Problems Problem Status Onset Carotid occlusion, left Acute
--- NOTE | 2018-05-05 08:21 | ASMTLACE ---
LACE Length of stay for Answers: 2 days current admission Acuity / Level of Answers: Yes Care: Did the patient have an inpatient admission? Comorbidities - select Answers: Cerebrovascular disease all that apply (CVA, TIA, aneurysms, vasc ular dementia) Coronary Artery Disease Opioid dependence / Chronic pain Other Notes: BPH; Hx of gastric bypa ss # of Emergency department Answers: 0 visits in the last 6 months Score: 13 Date Signed: 05/05/2018 08:20 AM Electronically Signed By:Sharifa Zamudio
[2018-05-05] MEDS: FUROSEMIDE 40 MG TAB PO SCH (08:37)
[2018-05-05] MEDS: TAMSULOSIN HCL 0.4 MG CAP PO SCH (08:37)
[2018-05-05] MEDS: FAMOTIDINE 20 MG TAB PO SCH ×2 (08:37→20:43)
[2018-05-05] MEDS: CETIRIZINE 10 MG TAB PO SCH (08:37)
[2018-05-05] MEDS: SENNOSIDES/DOCUSATE SODIUM TAB PO SCH ×2 (08:37→20:42)
[2018-05-05] MEDS: METOPROLOL SUCCINATE XR 25 MG TAB PO SCH (08:37)
[2018-05-05] MEDS: ENOXAPARIN 30 MG/0.3 ML SYR SC SCH ×2 (08:37→20:45)
[2018-05-05] MEDS: Azelastine/Fluticasone [Dymista Nasal Spray] EACHNARE SCH ×2 (08:38→20:46)
[2018-05-05] MEDS ORDERED: ENOXAPARIN 40 MG/0.4 ML SYR SC SCH (09:00)
--- NOTE | 2018-05-05 12:20 | ASMTCMCOM ---
CM Note CM Note Notes: Pt had planned OA of hip. Pt medically stable for d/c with [facility] PT. Orders to be obtaned via [employer]. Date Signed: 05/05/2018 12:20 PM Electronically Signed By:CHAGO Campos
--- NOTE | 2018-05-05 19:10 | HOSPPROG ---
Hospitalist Progress Note Assessment/Plan: * Elective [place] - slow to mobilize * Carotid artery dissection -continue Lovenox 30mg SubQ BID for 1 week, then back to Plavix * Morbid obesity BMI 40 -watch respiratory status on narcotics * h/o gastric bypass surgery Subjective: bad day, nauseated, couldn't do PT Objective: Vital Signs Temp Pulse Resp BP Pulse Ox 37.2 C 73 16 108/63 96 05/05/18 15:37 05/05/18 15:37 05/05/18 15:37 05/05/18 15:37 05/05/18 15:37 Laboratory Results 05/05/18 04:50 05/05/18 04:50 05/04/18 05/05/18 05/06/18 05:59 05:59 05:59 Intake Total 2500 Output Total 950 50 Balance 1550 -50 - Physical Exam Constitutional: no apparent distress, appears nourished, not in pain Cardiovascular: regular rate and rhythym, no murmur, rub, or gallop Respiratory: no respiratory distress, no rales or rhonchi, clear to auscultation Gastrointestinal: normoactive bowel sounds, soft, non-tender abdomen, no palpable masses Skin: no rashes or abrasions, no fluctuance, no induration Neurologic: AAOx3, sensation intact bilaterally Psychiatric: interacting appropriately, not anxious, not encephalopathic, thought process linear ICD10 Worksheet Patient Problems: Problems Problem Status Onset Carotid occlusion, left Acute
[2018-05-05] MEDS: ATORVASTATIN CALCIUM 40 MG TAB PO SCH (20:42)
[2018-05-05] MEDS: PANTOPRAZOLE SODIUM 40 MG TAB PO SCH (20:43)
[2018-05-05] MEDS: MONTELUKAST SODIUM 10 MG TAB PO SCH (20:43)
[2018-05-05] MEDS: CYCLOBENZAPRINE 10 MG TAB PO PRN (23:14)
[2018-05-06] MEDS: oxyCODONE IR 5 MG TAB PO PRN (03:37)
[2018-05-06 05:33] LABS: PLATELET COUNT 187 10^3/uL (150-400)
[2018-05-06] MEDS: ACETAMINOPHEN 325 MG TAB PO SCH ×2 (05:34→12:47)
--- NOTE | 2018-05-06 06:26 | SOAPPROG ---
SOAP Progress Note Assessment/Plan: Assessment: s/p vera Plan: anticoagulation: resume lovenox 30 sq bid for one week then may resume plavix and stop lovenox wbat anterior hip precautions d/c when cleared by pt appreciate hospitalist input slow progress with pt yest secondary to nausea, d/c when cleared by pt, if unable then patient will need snf seek attn for increasing abd pain, leg pain, swelling, redness or other focal complaint 05/05/18 07:04 05/06/18 06:24 Subjective: no nausea currently no cp no sob no bm Objective: Vital Signs Temp Pulse Resp BP Pulse Ox 37.4 C 81 18 101/68 91 L 05/06/18 00:00 05/06/18 00:00 05/06/18 00:00 05/06/18 00:00 05/06/18 00:00 Laboratory Results 05/06/18 05:02 05/05/18 04:50 05/05/18 05/06/18 05/07/18 05:59 05:59 05:59 Intake Total 2500 Output Total 950 50 Balance 1550 -50 dressings changes mild serrous drainage from drain site intact pf,df, ehl toes warm and pink neg homans zari abd soft, obese, nontender throughout ICD10 Worksheet Patient Problems: Problems Problem Status Onset Carotid occlusion, left Acute
--- NOTE | 2018-05-06 06:26 | PDIAF ---
- Diagnosis Diagnosis: right hip djd Code Status: Full Code - Medication Management Discharge Medications: Medications to Continue on Transfer Metoprolol Succinate Xr [Toprol Xl 25 mg (*)] 12.5 mg PO DAILY 09/19/16 [Last Taken 05/02/18] Tamsulosin HCl [Flomax 0.4 MG (*)] 0.4 mg PO DAILY 09/19/16 [Last Taken 07:00] Acetaminophen [Tylenol 325mg (*)] 325 mg PO DAILY PRN 04/16/18 [Last Taken 05/03] Atorvastatin Calcium [Lipitor 40 mg (*)] 40 mg PO HS 04/16/18 [Last Taken ] Azelastine/Fluticasone [Dymista Nasal [place]] 1 spray EACHNARE BID 04/16/18 [ Last Taken 05/02/18] Cholecalciferol Vit D3 [Vitamin D3 (*)] 5,000 units PO DAILY 04/16/18 [Last Taken 04/27/18] Furosemide [Lasix 40 MG (*)] 40 mg PO DAILY 04/16/18 [Last Taken 05/02/18] Herbals/Supplements -Info Only 1 ea PO DAILY 04/16/18 [Last Taken 04/27/18] Levocetirizine Dihydrochloride [Xyzal] 5 mg PO DAILY 04/16/18 [Last Taken ] Montelukast Sodium [Singulair 10 mg (*)] 10 mg PO HS 04/16/18 [Last Taken ] Pantoprazole Sodium [Protonix] 20 mg PO HS 04/16/18 [Last Taken 05/02/18] Enoxaparin [Lovenox] 30 mg SC BID #12 syr 05/05/18 [Last Taken Unknown] oxyCODONE IR [Oxycodone Ir (*)] 5 - 10 mg PO Q3HRS PRN #60 tab 05/05/18 [Last Taken Unknown] Discharge Medications: Refer to the Discharge Home Medication list for PRN reason. - Orders Services needed: Physical Therapy Diet Recommendation: no restrictions on diet Diet Texture: Regular Texture Diet Additional Instructions: TOTAL JOINT ARTHROPLASTY DISCHARGE INSTRUCTIONS 1. Your surgeon follows the [facility] protocol for reducing your risk of DVT (blood clots) following surgery. Medication will be ordered to prevent blood clots. A sudden increase in calf pain and/or swelling could indicate a blood clot in your leg. If this occurs, please call your surgeon or his/her graphic design assistant. An ultrasound of the leg may be necessary to diagnose a blood clot. If you have conditions that make you a higher risk for blood clots, your surgeon may use more aggressive ways to prevent them. Notify your surgeon if you think you are a high risk for blood clots. 2. Wear your white surgical stockings (SIMONA hose) for 2 weeks. This decreases your swelling and may help prevent blood clots. It is ok to remove SIMONA hose at night time to give your legs a break. 3. Swelling and bruising in the surgical leg is common. If you feel that it is excessive, please notify your surgeon. 4. Elevate your surgical leg with the ankle above the hip several times every day. Please keep the leg straight when you elevate by putting pillows under your foot. Do not put pillows under your knee. This will make being able to fully straighten more difficult. This is uncomfortable, but try to do it as much as possible. 5. For total knee replacements use compressive wrap on your knee for 3-5 days after surgery, then you can discontinue it. 6. Use a walker or crutches for 1-2 weeks. Progress your weight-bearing as tolerated. You may start to use a cane when you feel stable and safe. 7. You will receive physical therapy instructions in the hospital. Continue those exercises at home. There are additional exercises in the total joint booklet you were given before surgery. Outpatient physical therapy will begin 7- 10 days after surgery. Please schedule this in advance. 8. Use ice on your knee at least 3-5 times every day for 30 minutes. This helps reduce pain and swelling. Also use it at night before falling asleep. 9. Leave your surgical dressing in place for 2 weeks. Your dressing is water resistant, but not waterproof. Cover it with Saran Wrap or Nbmts-i-Qmay before showering. You may shower as soon as you feel safe entering a shower. If you notice bleeding from your incision 2 or 3 days after surgery, please notify your surgeon. 10. Due to narcotics, decreased activity and altered diet, most patients experience constipation after surgery. Use [id number]-quqkpvl stool softeners while you are on narcotics. 11. You may drive a car when you are comfortable bearing weight, have good muscular control of your leg and are off narcotics. This usually occurs 2-4 weeks after surgery, depending on which leg was operated on. 12. If there are questions not addressed here, please refer the [facility] book given for more information. If you still have questions, please contact your surgeon s office. 13. If you have a life-threatening emergency, please call 911 and go to the emergency room immediately. For non-life threatening emergencies, please call your physicians office for advice before going to the emergency room. [facility] [phone] - Follow Up Care Current Providers and Referrals: Dagoberto Leos MD [Medical Doctor] - Abby Causey MD [Primary Care Provider] -
[2018-05-06 08:51] VITALS: BP 106/59
[2018-05-06] MEDS: FUROSEMIDE 40 MG TAB PO SCH (09:19)
[2018-05-06] MEDS: FAMOTIDINE 20 MG TAB PO SCH (09:19)
[2018-05-06] MEDS: ENOXAPARIN 30 MG/0.3 ML SYR SC SCH (09:19)
[2018-05-06] MEDS: SENNOSIDES/DOCUSATE SODIUM TAB PO SCH (09:19)
[2018-05-06] MEDS: CETIRIZINE 10 MG TAB PO SCH (09:20)
[2018-05-06] MEDS: CYCLOBENZAPRINE 10 MG TAB PO PRN (09:20)
[2018-05-06] MEDS: TAMSULOSIN HCL 0.4 MG CAP PO SCH (09:20)
[2018-05-06] MEDS: METOPROLOL SUCCINATE XR 25 MG TAB PO SCH (09:20)
[2018-05-06] MEDS: Azelastine/Fluticasone [Dymista Nasal Spray] EACHNARE SCH (11:14)
--- NOTE | 2018-05-06 12:40 | HOSPPROG ---
Hospitalist Progress Note Assessment/Plan: 62yo M with history of carotid artery dissection here for elective [place]. Medicine was consulted for management of antiplatelet/anticoagulation in jaxson- operative period. #Carotid artery dissection -continue Lovenox 30mg SubQ BID for 1 week (through Friday, 05/11), then back to Plavix #Elective [place] - PT recommending SNF #Morbid obesity BMI 40 -watch respiratory status on narcotics, patient somnolent today #h/o gastric bypass surgery Ok to discharge from medicine team stand point. Subjective: Nausea better. Pain still present but also improved. No issues with bleeding. PT recommending SNF. Objective: Vital Signs Temp Pulse Resp BP Pulse Ox 36.9 C 77 18 106/59 L 95 05/06/18 08:00 05/06/18 09:20 05/06/18 08:00 05/06/18 09:20 05/06/18 08:00 Laboratory Results 05/06/18 05:02 05/05/18 04:50 05/05/18 05/06/18 05/07/18 05:59 05:59 05:59 Intake Total 2500 450 Output Total 950 50 Balance 1550 -50 450 - Physical Exam Constitutional: no apparent distress, obese, other (sleepy throughout encounter) Ears, Nose, Mouth, Throat: moist mucous membranes, hearing normal, ears appear normal, no oral mucosal ulcers Cardiovascular: regular rate and rhythym, no murmur, rub, or gallop Respiratory: no respiratory distress, no rales or rhonchi, clear to auscultation Gastrointestinal: normoactive bowel sounds, soft, non-tender abdomen, no palpable masses Neurologic: AAOx3, sensation intact bilaterally Psychiatric: interacting appropriately, not anxious, not encephalopathic, thought process linear ICD10 Worksheet Patient Problems: Problems Problem Status Onset Carotid occlusion, left Acute
--- NOTE | 2018-05-06 16:38 | ASMTCMCOM ---
CM Note CM Note Notes: Today PT rec SNF, pt/ agreeable and want to go to [facility]. [facility] accepts pt for today, Bibiana scheduled van transport for 1530. Orders sent in [employer]. updated. MARK Crandall called report. Date Signed: 05/06/2018 04:38 PM Electronically Signed By:CHAGO Campos
--- NOTE | 2018-05-06 16:42 | ASDISCHSUM ---
Discharge Information Plan Status:SNF Medically Cleared to Leave: Discharge Date:05/06/2018 04:24 PM CM D/C Disposition:Snf Facility ADT D/C Disposition:Home Health Service Projected Discharge Date:05/06/2018 11:00 AM Transportation at D/C:Wheelchair Van Discharge Delay Reason: Follow-Up Date:05/06/2018 11:00 AM Discharge Slot: Final Diagnosis: Placement Information Referral Type:*Chcf/SNF Referral ID:[id number] Provider Name:[facility] Address 1:[address] Address 2: City:[place] Selection Factors: State:[place] Patient Contact Information Contact Name:MICHAEL Relationship: Address:[address] Work Phone: [facility]:[place] Alternate Phone: State/Zip Code:[place] [address] Email: Financial Information Financial Class:HMO and PPO Plans Primary Plan Desc:[facility] Primary Plan Number:[id number] Secondary Plan Desc: Secondary Plan Number: Assessment Information LACE LACE Length of stay for Answers: 2 days current admission Acuity / Level of Answers: Yes Care: Did the patient have an inpatient admission? Comorbidities - select Answers: Cerebrovascular disease all that apply (CVA, TIA, aneurysms, vasc ular dementia) Coronary Artery Disease Opioid dependence / Chronic pain Other Notes: BPH; Hx of gastric bypa ss # of Emergency department Answers: 0 visits in the last 6 months Score: 13 Date Signed: 05/05/2018 08:20 AM Electronically Signed By:Sharifa Zamudio [facility] CM Progress Note CM Note CM Note Notes: Pt had planned OA of hip. Pt medically stable for d/c with [facility] PT. Orders to be obtaned via sifonr. Date Signed: 05/05/2018 12:20 PM Electronically Signed By:CHAGO Campos [facility] CM Progress Note CM Note CM Note Notes: Today PT rec SNF, [facility] pt for today, Bibiana scheduled w[facility] van transport for 1530. Orders sent in [employer]. updated. MARK Crandall called report. Date Signed: 05/06/2018 04:38 PM Electronically Signed By:CHAGO Campos Intervention Information
--- NOTE | 2018-05-09 07:35 | GDS ---
ADMIT DIAGNOSIS: Right hip degenerative joint disease. DISCHARGE DIAGNOSIS: Right hip degenerative joint disease. PROCEDURE: Right total hip arthroplasty. HISTORY OF PRESENT ILLNESS: The patient is a 62-year-old, obese gentleman with end-stage arthritis t o his right hip. He has failed all attempts at conservative management. I have recommended total hi p replacement. He understood the risks, benefits, alternatives, and wished to proceed. Written cons ent was signed and placed in patient's chart. HOSPITAL COURSE: Patient admitted to the hospital floor after uncomplicated total hip arthroplasty. He tolerated the procedure well. His postoperative course was characterized by nausea and limited m obility the 1st 24 hours, after which he progressed slowly with physical therapy. Ultimately it was decided he required a subacute nursing stay and this was set up. He was evaluated and managed with rabia castellano hospitalist service, given the previous history of stroke and need for acute anticoagulation. He was placed on Lovenox 30 mg subcu twice daily the evening of his surgical procedure. DISCHARGE MEDICATIONS: Lovenox 30 mg subcu b.i.d. for 1 week and then he may resume his Plavix. Oxy codone 5 mg 1-2 every 6 hours p.r.n. pain. DISCHARGE INSTRUCTIONS: He is weightbearing as tolerated. Anterior hip precautions. Follow up in 2 weeks. Seek attention for increasing redness, swelling, drainage, discharge, belly pain, other foca l complaints. /[id number]/MODL
--- NOTE | 2018-05-09 07:50 | GOP ---
DATE OF OPERATION: 05/04/2018 SURGEON: Dagoberto Leos MD LICENSING AND REGISTRATION DIRECTOR: Rafa Jenkins, assistant bookkeeper, who was a medical necessity for the entirety of the case. PREOPERATIVE DIAGNOSIS: Right hip degenerative joint disease. POSTOPERATIVE DIAGNOSIS: Right hip degenerative joint disease. PROCEDURE PERFORMED: Right total hip arthroplasty. FINDINGS: SPECIMENS: To Pathology, the femoral head. ESTIMATED BLOOD LOSS: 400 cc. INDICATIONS: Neil Lyn is a 62-year-old gentleman with end-stage arthritis to his right hip. Cl inical and radiographic features are consistent with this. He has failed all attempts at conservativ e management. I have, therefore, recommended operative intervention. DESCRIPTION OF PROCEDURE: The patient was identified in the preanesthesia area. The right hip clear ly demarcated as the operative site with indelible marker. He was given 2 g of Ancef intravenously e n route to the operative suite. In the OR, spinal anesthetic was placed followed by general sedation . He was positioned in the supine position. Attention was turned to the pelvis and both lower extre mities which were sterilely prepped and draped in the usual fashion. Appropriate time-out procedure was carried out. Attention was first turned to the left hemipelvis. A 2 cm incision was made overly ing the iliac crest. Three pins were then placed into the crest in a standard fashion and the pelvic reference array affixed. Attention was then turned to the right hip. An anterior incision was made . Thick subcutaneous flaps were elevated. The tensor fascia was opened in the origin of its fibers and retracted laterally. The underlying vascular structures were identified, ligated, cauterized, tr ansected. Retractors were placed into an extracapsular position. T capsulotomy was then made and re tractors placed to an intracapsular position. An acetabular checkpoint was placed. The bony wedge w as removed from the femoral neck followed by the femoral head. The remnants of the acetabular labrum were sharply excised. All bony landmarks were entered into the computer. Using the MAKOplasty robo t, a 58 mm reamer was then placed in an opening angle of 40 degrees anteversion at 20 to the appropri ate depth. A 58 mm acetabular shell was then placed and secured with two 6.5 mm screws. A Trident X 3 0-degree liner was placed, confirmed to be fully seated. Attention was then turned to the femur wh ich was delivered through the use of soft tissue releases and extension of the table in a figure 4 po sition. The proximal canal was opened, serial broaching carried out to a size 6 stem and trial reduc tion was carried out with a size 6 stem and ultimately a +5 mm 36 mm head. This allowed appropriate episcopal of leg lengths. Stability profile with full extension, external rotation without subluxa tion. Intraoperative fluoroscopy was used to confirm appropriate positioning of all components. A s tem was then removed and a final size 6 stem 132 neck angle was then placed, confirmed to be fully se ated, and a 36 mm +5 mm Biolox head was then placed on a cleansed trunnion. The hip was copiously ir rigated and reduced. Stability profile was as previous. The wound was copiously irrigated. A 10-Fr ench drain was then placed, connected to bulb suction. The tensor fascia was closed using 0 Vicryl. The tissue was injected with a joint cocktail of ropivacaine, morphine, Toradol, and epinephrine. S ubcutaneous tissue closed using 2-0 Monocryl and kate were placed given the patient's obesity rath er than the zip line closure. Sterile dressing was applied. The patient was awakened, extubated, an d taken to the recovery room in good stable condition. TOTAL TOURNIQUET TIME: None. COMPLICATIONS: None. IMPLANTS: [place] Trident II Tritanium acetabular shell, 58 mm, two 6.5 mm cancellous screws, X3 0-d egree polyethylene insert 36 mm, Accolate degree neck angle, hip stem size 6, and a Biolox ceramic head 36 mm, +5 mm neck length. DISPOSITION: To the recovery room, then the floor. He is weightbearing as tolerated. Anterior hip precautions. /[id number]/MODL
== END 2018-05-06 16:24 | DRG 469 ==
LOC: F3N 09:35
PROVIDERS: ADMIT Orthopaedic Surgery; ATTEND Orthopaedic Surgery
PROC: 0SR904Z Replacement of Right Hip Joint with Ceramic on Polyethylene Synthetic Substitute, Open Approach (ICD-10-PCS; principal; 2018-05-04 10:30)
PROC: 8E0YXCZ Robotic Assisted Procedure of Lower Extremity (ICD-10-PCS; principal; 2018-05-04 10:30)
DX: M16.11 Unilateral primary osteoarthritis, right hip (principal); I77.71 Dissection of carotid artery; E66.01 Morbid (severe) obesity due to excess calories; Z68.41 Body mass index [BMI] 40.0-44.9, adult; G47.33 Obstructive sleep apnea (adult) (pediatric); Z98.0 Intestinal bypass and anastomosis status; Z79.01 Long term (current) use of anticoagulants; Z79.02 Long term (current) use of antithrombotics/antiplatelets
CPT/HCPCS: 97116-GP; 97161-GP; 97165-GO; 97530-GP; C1713; J0171; J0690; J1100; J1650; J2250; J2270; J2370; J2405; J2704; J2710; J2780; J2795; J3010

== ENCOUNTER → 2018-11-11 | Outpatient (CLI) | payer BC | LOC: BMCIMAGING 09:07 | PROVIDERS: ATTEND Orthopaedic Surgery | DX: Z47.1 Aftercare following joint replacement surgery (principal); Z96.641 Presence of right artificial hip joint ==